=== PATIENT | female | born 1985 | race African-American/Black ===

== ENCOUNTER 2017-02-14 08:07 | Emergency (ER) | payer SELFPAY ==
[~2017-02-14] VITALS: Ht 165.1 cm; Wt 90.0 kg
[~2017-02-14 08:07] MED LIST: ORTHTAB3 PO
[2017-02-14 08:15] VITALS: BP 138/84; PULSE 84; RESP 16; TEMP 99; O2SAT 100
[2017-02-14] MEDS ORDERED: AMOX500T PO (08:29)
--- NOTE | 2017-02-14 08:31 | PD ---
HPI Chief Complaint: left eyelid swelling Time Seen by Provider: 08:22 Travel History International Travel<30 days: No Contact w/Intl Traveler<30days: No Traveled to known affect area: No History of Present Illness HPI patient woke up today with swelling to her left eye, has had h/o stye before and feels like it, tried over the counter ointment but it has not improved, nonrad, 11/02, no drainage. no fever/chills/visual disturbance/davies/n/v/d/cp/abd pain... no alleviating/aggravating factors. PFSH Past Medical History Anemia: Yes Diminished Hearing: No Reproductive: Yes (Dysfunctional uterine bleeding) Respiratory: Yes (HX PNEUMONIA X 1) Immunizations Current: No : 1 Para: 1 Past Surgical History Section: Yes (X's 1) Social History Alcohol Use: No Tobacco Use: Yes (4 cigarettes/day) Substance Use: No Allergies-Medications (Allergen,Severity, Reaction): Coded Allergies: acetaminophen (Unverified Allergy, Severe, Nausea/Vomiting, 01/07/17) hydrocodone (Unverified Allergy, Severe, Nausea/Vomiting, 01/07/17) Reported Meds & Prescriptions Reported Meds & Active Scripts Active Ortho Tri-Cyclen Lo (Norgestimate-Ethinyl Estradiol) Cycln Lo Tab 1 Tab PO DAILY 28 Days Review of Systems Except as stated in HPI: all other systems reviewed are Neg Eyes: Positive: Other (eyelid swelling) Physical Exam Narrative GENERAL: SKIN: Warm and dry. no rash HEAD: Atraumatic. Normocephalic. EYES: Pupils equal and round. No scleral icterus. No injection or drainage. inferior eyelid edema c/w stye, clear conjunctiva....20/20 vision michelle and unilateral ENT: No nasal bleeding or discharge. Mucous membranes pink and moist. NECK: Trachea midline. No JVD. CARDIOVASCULAR: Regular rate and rhythm. RESPIRATORY: No accessory muscle use. Clear to auscultation. Breath sounds equal bilaterally. GASTROINTESTINAL: Abdomen soft, non-tender, nondistended. MUSCULOSKELETAL: Extremities without clubbing, cyanosis, or edema. No obvious deformities. NEUROLOGICAL: Awake and alert. No obvious cranial nerve deficits. Motor grossly within normal limits. Five out of 5 muscle strength in the arms and legs. Normal speech. PSYCHIATRIC: Appropriate mood and affect; insight and judgment normal. Data Data Last Documented VS Vital Signs Date Time Temp Pulse Resp B/P (MAP) Pulse Ox O2 Delivery O2 Flow Rate FiO2 02/14/17 08:15 99.0 84 16 138/84 (102) 100 Room Air MDM Medical Decision Making Medical Screen Exam Complete: Yes Emergency Medical Condition: Yes Medical Record Reviewed: Yes Differential Diagnosis conjunctivitis v iritis v hordeolum Narrative Course after evaluation no e/o iritis/conjunctivitis and c/w stye Diagnosis Primary Impression: acute left hordeolum Patient Instructions: Amita (ED) Scripts Amoxicillin (Amoxicillin) 500 Mg Tab 500 MG PO BID for Infection, #14 TAB 0 Refills Prov: Gabriele Voss MD 02/14/17 Disposition: 01 DISCHARGE HOME Condition: Stable Gabriele Voss MD Feb 14, 2017 08:31
[2017-02-14] MEDS ORDERED: NORG1TAB28 PO (08:34)
== END 2017-02-14 08:41 | disposition home or self-care (01) ==
LOC: PHEFT 08:07
DX: H00.016 Hordeolum externum left eye, unspecified eyelid (principal); F17.210 Nicotine dependence, cigarettes, uncomplicated
CPT/HCPCS: 99283

== ENCOUNTER 2017-07-06 19:21 | Emergency (ER) | payer OTHER ==
[~2017-07-06] VITALS: Ht 160 cm; Wt 89.6 kg
[~2017-07-06 19:21] MED LIST changes: +AMOX500T PO; +NORG1TAB28 PO; -ORTHTAB3 PO
[2017-07-06 19:37] VITALS: BP 147/76; PULSE 96; RESP 20; TEMP 99; O2SAT 100
--- NOTE | 2017-07-06 20:12 | PD ---
HPI Chief Complaint: Cold / Flu Symptoms Time Seen by Provider: 20:07 Travel History International Travel<30 days: No Contact w/Intl Traveler<30days: No Traveled to known affect area: No History of Present Illness HPI 32-year-old female presents to the emergency department for evaluation of flulike symptoms for 3 days. Patient reports cough, congestion, chest tightness , sore throat, hoarse voice for 3 days. Patient has no chronic medical problems and takes no prescribed medications. No chest pain. No abdominal pain. No nausea, vomiting, diarrhea. Moderate severity. No exacerbating or alleviating factors. PFSH Past Medical History Anemia: Yes Diminished Hearing: No Reproductive: Yes (Dysfunctional uterine bleeding) Respiratory: Yes Immunizations Current: Yes ?: Not LMP: 06/03/2017 : 1 Para: 1 Past Surgical History Section: Yes (X's 1) Social History Alcohol Use: No Tobacco Use: Yes (1 cigarettes/day) Substance Use: No Allergies-Medications (Allergen,Severity, Reaction): Coded Allergies: acetaminophen (Unverified Allergy, Severe, Nausea/Vomiting, 07/06/17) hydrocodone (Unverified Allergy, Severe, Nausea/Vomiting, 07/06/17) Reported Meds & Prescriptions Reported Meds & Active Scripts Active Reported Ortho Tri-Cyclen Lo (Norgestimate-Ethinyl Estradiol) 0.18/0.215/0.25 mg-25 Mcg Tab 1 Tab PO HS Review of Systems Except as stated in HPI: all other systems reviewed are Neg Physical Exam Narrative GENERAL: Well-nourished, well-developed female patient, ambulatory. Afebrile. SKIN: Focused skin assessment warm/dry. HEAD: Normocephalic. Atraumatic. ENT: Mucosa pink and moist. No erythema or exudates. No uvular edema. No uvular , palatal, or tonsillar deviation. Airway patent. Nasal turbinates appear normal without nasal blood, purulent drainage or septal hematoma. Bilateral tympanic membranes are clear without erythema or perforation. EYES: No scleral icterus. No injection or drainage. NECK: Supple, trachea midline. No JVD or lymphadenopathy. CARDIOVASCULAR: Regular rate and rhythm without murmurs, gallops, or rubs. RESPIRATORY: Breath sounds equal bilaterally. No accessory muscle use. Lungs sounds are clear to auscultation. GASTROINTESTINAL: Abdomen soft, non-tender, nondistended. MUSCULOSKELETAL: No cyanosis, or edema. BACK: Nontender without obvious deformity. No CVA tenderness. Data Data Last Documented VS Vital Signs Date Time Temp Pulse Resp B/P (MAP) Pulse Ox O2 Delivery O2 Flow Rate FiO2 07/06/17 19:37 99.0 96 20 147/76 (99) 100 Orders Orders Chest, Single Ap (07/06/17 ) Influenzae A/B Antigen (07/06/17 20:11) Group A Rapid Strep Screen (07/06/17 20:11) Strep Culture (Group A) (07/06/17 20:15) MDM Medical Decision Making Medical Screen Exam Complete: No Emergency Medical Condition: No Medical Record Reviewed: No Interpretation(s) chest x-ray - CONCLUSION: The lungs are clear. Differential Diagnosis URI vs. influenza vs. strep vs. pneumonia Narrative Course 32 year old female presents to the emergency department for evaluation of cold symptoms for 3 days. Patient appears well on exam. Vital signs reassuring. Chest x-ray, influenza swab, strep swab are ordered and pending. Chest x-ray shows no acute disease. Strep swab is negative. Influenza is negative. Symptoms and physical are consistent with viral URI. Patient is to rest, Tylenol/Motrin as needed. She'll be discharged with a prescription for benzonatate capsules and prednisone. Patient verbalizes agreement. The patient was discharged in stable condition with instructions, including return instructions and follow up instructions. Diagnosis Primary Impression: Viral upper respiratory infection Referrals: Primary Care Physician call for appointment Patient Instructions: General Instructions, Upper Respiratory Infection (ED) Additional Instructions: Take benzonatate capsules as directed as needed for cough. Take prednisone as directed. Follow-up with your primary care physician. Return to the emergency department for any acute worsening of symptoms. Med/Other Pt SpecificInfo: Prescription(s) given Scripts Prednisone (Prednisone) 20 Mg Tab 40 MG PO DAILY for 5 Days, #10 TAB 0 Refills Take 40 mg (2 tablets) daily for 5 days Prov: Cheyanne Rodriguez 07/06/17 Benzonatate (Benzonatate) 200 Mg Cap 200 MG PO TID Y for COUGH, #21 CAP 0 Refills Prov: Cheyanne Rodriguez 07/06/17 Disposition: 01 DISCHARGE HOME Condition: Stable Cheyanne Rodriguez Jul 06, 2017 20:12
--- NOTE | 2017-07-06 20:39 | RADRPT ---
EXAM DATE/TIME: 07/06/2017 20:17 [facility] COMPARISON: No previous studies available for comparison. INDICATIONS : Shortness of breath. MEDICAL HISTORY : None. SURGICAL HISTORY : None. ENCOUNTER: Initial ACUITY: 1 day PAIN SCORE: 0/10 LOCATION: Bilateral chest FINDINGS: A single view of the chest demonstrates the lungs to be symmetrically aerated without evidence of mas s, infiltrate or effusion. The cardiomediastinal contours are unremarkable. Osseous structures are intact. CONCLUSION: The lungs are clear. Bk Xie MD on July 06, 2017 at 20:36 Board Certified Radiologist. This report was verified electronically.
[2017-07-06] MEDS ORDERED: PRED20 PO (20:43)
[2017-07-06] MEDS ORDERED: BENZ1CAP51 PO (20:43)
== END 2017-07-06 20:48 | disposition home or self-care (01) ==
LOC: PHEFT 19:21
DX: J06.9 Acute upper respiratory infection, unspecified (principal); R49.0 Dysphonia; R07.89 Other chest pain; Z72.0 Tobacco use
CPT/HCPCS: 71045; 87081; 87804; 87880; 99284